=== PATIENT | female | born 1980 | race African-American/Black ===

== ENCOUNTER 2022-07-07 18:05 | Emergency (ER) | payer BC, OTHER ==
[2022-07-07] MEDS ORDERED: Dicyclomine 20 MG/2 ML VIAL ONE (18:46)
[2022-07-07] MEDS ORDERED: Ondansetron PF 4 MG/2 ML Vial ONE (18:46)
[2022-07-07 18:59] LABS: Hemoglobin 11.1 g/dL (12.0-15.5); Mean Corpuscular HGB CONC 32.9 g/dL (32.0-36.0); Mean Corpuscular Volume 91.1 fl (81.6-98.3); Mean Platelet Volume 9.2 fl (7.4-10.4); Platelet Count 286 10x3/uL (150-450); RBC Distribution Width 12.7 % (11.5-14.5); White Blood Cell (WBC) Count 5.4 10x3/uL (3.5-10.5)
[2022-07-07 19:00] LABS: MDiff Complete? YES
[2022-07-07 19:03] LABS: Bilirubin Neg (Negative); Blood, Urine 50 (Negative); Clarity Clear (Clear); Glucose, Urine (Dipstick) Normal (Negative); Ketone, Urine 15 mg/dL (Negative); Leukocyte 25 (Negative); Nitrite Negative (Negative); Protein, Urine (Dipstick) 30 mg/dl (Neg-Trace); Specific Gravity, Urine 1.015 (1.002-1.036); Urobilinogen Normal mg/dL (Less than 2)
[2022-07-07 19:06] LABS: BHCG - Serum Negative (NEGATIVE); Pregs Control Background? CLEAR/WHITE (CLR/WHITE); Pregs Control Bar Appear? YES (CONTROL BAR)
[2022-07-07 19:08] LABS: ALT (SGPT) 20 U/L (8-55); AST (SGOT) 23 U/L (5-34); Albumin 4.4 g/dL (3.5-5.0); Alkaline Phosphatase 45 U/L (40-110); Anion Gap 13 mmol/L (10-20); BUN (Urea Nitrogen) 19 mg/dL (7.0-18.7); Bilirubin, Total 0.5 mg/dL (0.2-1.2); Calc. Creatinine Clearance 0 mL/min (70-130); Calcium 9.7 mg/dL (7.8-10.44); Carbon Dioxide 25 mmol/L (22-29); Chloride 106 mmol/L (98-107); Estimated GFR 95; Globulin 3.5 g/dL (2.4-3.5); Glucose 84 mg/dL (70-105); Lipase 136 U/L (8-78); Potassium 3.8 mmol/L (3.5-5.1); Protein, Total 7.9 g/dL (6.0-8.3); Sodium 140 mmol/L (136-145)
[2022-07-07 19:14] LABS: Bacteria/HPF 1+ HPF (None Seen); Mucous/LPF 1+ LPF (<2+); Squamous Epithelial 0-3 HPF (0-3); WBC/HPF 0-3 HPF (0-3)
[2022-07-07 22:25] LABS: Band 28 % (5-11); Eosinophils 1 % (0-10); Lymphocytes 28 % (21-51); Metamyelocyte 2 % (0-0); Monocytes 8 % (0-10); Neutrophil 33 % (42-75); Platelet Morphology Comment Appears Adequate
[2022-07-07 22:26] LABS: RBC Morphology Normal
== END 2022-07-07 19:35 | disposition home or self-care (01) ==
LOC: CSHERS 18:05
DX: R11.2 Nausea with vomiting, unspecified (principal); R19.7 Diarrhea, unspecified; J45.909 Unspecified asthma, uncomplicated; Z79.899 Other long term (current) drug therapy
CPT/HCPCS: 80053; 81003; 81015; 83690; 84703; 85025; 87086; 96361; 96372; 96374; J2405

== ENCOUNTER 2023-01-29 14:43 | Emergency (ER) | payer BC, OTHER ==
[2023-01-29] MEDS ORDERED: Ketorolac Tromethamine 30 MG/ML VIAL ONE (15:25)
== END 2023-01-29 16:20 | disposition home or self-care (01) ==
LOC: CSHERS 14:43
DX: M79.641 Pain in right hand (principal)
CPT/HCPCS: 96372; J1885

== ENCOUNTER 2023-07-23 07:02 | Emergency (ER) | payer OTHER, SELFPAY ==
[2023-07-23] MEDS ORDERED: Lorazepam 2 MG/ML VIAL ONE (07:18)
== END 2023-07-23 08:19 | disposition home or self-care (01) ==
LOC: CSHERS 07:02
DX: F41.9 Anxiety disorder, unspecified (principal)
CPT/HCPCS: 71045; 93005; 96374; J2060

== ENCOUNTER 2023-09-26 09:23 | Emergency (ER) | payer BC ==
[2023-09-26] MEDS ORDERED: Acetaminophen 500 MG TAB ONE (10:21)
[2023-09-26] MEDS ORDERED: Ketorolac Tromethamine 30 MG/ML VIAL ONE (10:21)
[2023-09-26 10:41] LABS: #Monocytes 0.7 10x3/uL (0.0-1.1); #Neutrophils 13.5 10x3/uL (1.5-8.4); %Basophils 0.2 % (0.0-2.0); %Eosinophils 0.2 % (0.0-6.0); %Lymphocytes 10.7 % (18.0-47.0); %Monocytes 4.4 % (0.0-10.0); %Neutrophils 84.1 % (40.0-75.0); Hematocrit 34.9 % (34.9-44.5); Hemoglobin 11.4 g/dL (12.0-15.5); Mean Corpuscular HGB CONC 32.7 g/dL (32.0-36.0); Mean Corpuscular Hemoglobin 29.2 pg (27.0-33.0); Mean Corpuscular Volume 89.5 fl (81.6-98.3); Platelet Count 329 10x3/uL (150-450); RBC Distribution Width 12.3 % (11.5-14.5); White Blood Cell (WBC) Count 16.1 10x3/uL (3.5-10.5)
[2023-09-26 10:51] LABS: SARS-CoV-2 NAA Rapid Test Not Detected (NotDetected)
[2023-09-26 10:55] LABS: ALT (SGPT) 16 U/L (8-55); AST (SGOT) 20 U/L (5-34); Albumin 4.1 g/dL (3.5-5.0); Alkaline Phosphatase 56 U/L (40-110); Anion Gap 13 mmol/L (10-20); BUN (Urea Nitrogen) 11 mg/dL (7.0-18.7); Bilirubin, Total 0.4 mg/dL (0.2-1.2); Calc. Creatinine Clearance 0 mL/min (70-130); Calcium 9.8 mg/dL (7.8-10.44); Carbon Dioxide 26 mmol/L (22-29); Chloride 104 mmol/L (98-107); Estimated GFR 87; Globulin 3.5 g/dL (2.4-3.5); Glucose 102 mg/dL (70-105); Potassium 4.1 mmol/L (3.5-5.1); Protein, Total 7.6 g/dL (6.0-8.3); Sodium 139 mmol/L (136-145)
[2023-09-26 12:52] LABS: Bilirubin Neg (Negative); Blood, Urine 10 (Negative); Clarity Clear (Clear); Glucose, Urine (Dipstick) Normal (Negative); Ketone, Urine Negative (Negative); Leukocyte 25 (Negative); Nitrite Negative (Negative); Protein, Urine (Dipstick) Negative (Neg-Trace); Urobilinogen Normal mg/dL (Less than 2)
[2023-09-26 12:57] LABS: Pregnancy Test - Urine (BHCG) Negative (Negative); Pregu Control Background? CLEAR/WHITE (CLR/WHITE); Pregu Control Bar Appear? YES (CONTROL BAR)
[2023-09-26 13:16] LABS: Bacteria/HPF Rare-Few HPF (None Seen); CAUTI Indications for Culture Fever or rigors; RBC/HPF None Seen HPF (0-3); Squamous Epithelial 0-3 HPF (0-3); WBC/HPF 0-3 HPF (0-3)
[2023-09-26 13:17] LABS: Urine Culture Reflex No No
== END 2023-09-26 13:58 | disposition home or self-care (01) ==
LOC: CSHERS 09:23
DX: J06.9 Acute upper respiratory infection, unspecified (principal); J45.909 Unspecified asthma, uncomplicated; Z20.822 Contact with and (suspected) exposure to COVID-19
CPT/HCPCS: 71046; 80053; 81001; 81025; 83735; 85025; 96361; 96374; J1885

== ENCOUNTER 2023-11-09 17:50 | Emergency (ER) | payer BC ==
[2023-11-09 19:23] LABS: #Monocytes 0.4 10x3/uL (0.0-1.1); #Neutrophils 1.8 10x3/uL (1.5-8.4); %Basophils 0.3 % (0.0-2.0); %Lymphocytes 38.4 % (18.0-47.0); %Monocytes 10.2 % (0.0-10.0); %Neutrophils 50.8 % (40.0-75.0); Hematocrit 39.3 % (34.9-44.5); Mean Corpuscular HGB CONC 33.1 g/dL (32.0-36.0); Mean Corpuscular Hemoglobin 29.7 pg (27.0-33.0); Mean Corpuscular Volume 89.9 fl (81.6-98.3); Mean Platelet Volume 9.6 fl (7.4-10.4); Platelet Count 227 10x3/uL (150-450); RBC Distribution Width 12.4 % (11.5-14.5); Red Blood Cell (RBC) Count 4.37 10x6/uL (3.90-5.03); White Blood Cell (WBC) Count 3.5 10x3/uL (3.5-10.5)
[2023-11-09 19:36] LABS: SARS-CoV-2 NAA Rapid Test DETECTED (NotDetected)
[2023-11-09 19:43] LABS: ALT (SGPT) 23 U/L (8-55); AST (SGOT) 36 U/L (5-34); Albumin 4.3 g/dL (3.5-5.0); Alkaline Phosphatase 50 U/L (40-110); Anion Gap 16 mmol/L (10-20); BUN (Urea Nitrogen) 16 mg/dL (7.0-18.7); Bilirubin, Total 0.4 mg/dL (0.2-1.2); Calc. Creatinine Clearance 0 mL/min (70-130); Calcium 9.3 mg/dL (7.8-10.44); Carbon Dioxide 23 mmol/L (22-29); Chloride 104 mmol/L (98-107); Estimated GFR 62; Globulin 3.8 g/dL (2.4-3.5); Glucose 114 mg/dL (70-105); Lipase 22 U/L (8-78); Potassium 3.7 mmol/L (3.5-5.1); Protein, Total 8.1 g/dL (6.0-8.3); Sodium 139 mmol/L (136-145)
== END 2023-11-09 20:55 | disposition home or self-care (01) ==
LOC: CSHERS 17:50
DX: U07.1 COVID-19 (principal)
CPT/HCPCS: 36415; 80053; 83690; 85025; 96360

== ENCOUNTER 2023-12-22 14:09 | Emergency (ER) | payer BC ==
[2023-12-22 15:25] LABS: #Monocytes 0.1 10x3/uL (0.0-1.1); #Neutrophils 2.7 10x3/uL (1.5-8.4); %Basophils 0.6 % (0.0-2.0); %Lymphocytes 15.8 % (18.0-47.0); %Monocytes 3.8 % (0.0-10.0); %Neutrophils 79.2 % (40.0-75.0); Hematocrit 36.8 % (34.9-44.5); Hemoglobin 12.1 g/dL (12.0-15.5); Mean Corpuscular HGB CONC 32.9 g/dL (32.0-36.0); Mean Corpuscular Hemoglobin 29.3 pg (27.0-33.0); Mean Corpuscular Volume 89.1 fl (81.6-98.3); Mean Platelet Volume 9.5 fl (7.4-10.4); Platelet Count 210 10x3/uL (150-450); RBC Distribution Width 12.8 % (11.5-14.5); Red Blood Cell (RBC) Count 4.13 10x6/uL (3.90-5.03); White Blood Cell (WBC) Count 3.4 10x3/uL (3.5-10.5)
[2023-12-22] MEDS ORDERED: Ondansetron PF 4 MG/2 ML Vial ONE (15:31)
[2023-12-22 15:33] LABS: ALT (SGPT) 40 U/L (8-55); AST (SGOT) 62 U/L (5-34); Albumin 4.3 g/dL (3.5-5.0); Alkaline Phosphatase 50 U/L (40-110); Anion Gap 13 mmol/L (10-20); BUN (Urea Nitrogen) 18 mg/dL (7.0-18.7); Bilirubin, Total 0.5 mg/dL (0.2-1.2); Calc. Creatinine Clearance 0 mL/min (70-130); Calcium 8.8 mg/dL (7.8-10.44); Carbon Dioxide 26 mmol/L (22-29); Chloride 106 mmol/L (98-107); Estimated GFR 69; Globulin 3.8 g/dL (2.4-3.5); Glucose 88 mg/dL (70-105); Lipase 14 U/L (8-78); Magnesium 2.1 mg/dL (1.6-2.6); Potassium 3.3 mmol/L (3.5-5.1); Protein, Total 8.1 g/dL (6.0-8.3); Sodium 142 mmol/L (136-145)
[2023-12-22 15:38] LABS: BHCG - Serum Indeterminate (NEGATIVE); Pregs Control Background? CLEAR/WHITE (CLR/WHITE); Pregs Control Bar Appear? YES (CONTROL BAR)
[2023-12-22 16:25] LABS: SARS-CoV-2 NAA Rapid Test Not Detected (NotDetected)
[2023-12-22 16:26] LABS: CRP (Inflammatory) 6.25 mg/dL (= or < 0.5)
== END 2023-12-22 17:03 | disposition home or self-care (01) ==
LOC: CSHERS 14:09
DX: J10.1 Influenza due to other identified influenza virus with other respiratory manifestations (principal); R11.2 Nausea with vomiting, unspecified
CPT/HCPCS: 36415; 80053; 83605; 83690; 83735; 84702; 84703; 85025; 86140; 96374; J2405